=== PATIENT | female | born 1950 | race Caucasian/White ===

== ENCOUNTER 2023-01-19 13:11 | Emergency (ER) | payer MEDICARE, OTHER ==
[~2023-01-19] VITALS: Ht 162.6 cm; Wt 71.2 kg
[2023-01-19 13:35] VITALS: BP 153/77
--- NOTE | 2023-01-19 13:56 | Diagnostic Imaging Report ---
EXAMINATION: Chest 2 view HISTORY: Cough. COMPARISON: None available. FINDINGS: The lung volumes are normal. No focal consolidation is seen. No large pleural effusion or pneumothorax is seen. The cardiomediastinal silhouette is normal in size with prosthetic heart valve. There is calcified aortic atherosclerotic plaque. Sternotomy wires are noted. No acute osseous abnormality is seen. IMPRESSION: 1. No acute pleuroparenchymal process. Dictated by: Dictated on workstation # [id number]
--- NOTE | 2023-01-19 14:13 | ED EENT ---
History of Present Illness General Chief Complaint: Nasal Problems Stated Complaint: NASAL PROBLEM Nursing Triage Note: Patient states she has had nasal congestion and cough since January 04. She states she went to walk-in care on Sunday and received prescriptions for doxycycline and tessalon pearls. She states the doxycyline made her nauseous and she was unable to finish taking the prescription. She states she is concerned she may have pneumonia and she has had blood clots the size of a quarter from her right nare 4 times today. She states she used a nasal gel earlier and has not had any clots since that time. Source: patient History of Present Illness Date Seen by Provider: Jan 19, 2023 Time Seen by Provider: 13:30 Initial Comments 72-year-old female presenting with complaints of continued nasal congestion and cough since January 04. She was seen and evaluated at the urgent care on Sunday and was prescribed doxycycline and Tessalon Perles. She states that the doxycycline, like most antibiotics she has tried previously, made her very nauseated and she was having vomiting and dry heaves. She had stopped taking the medicine after 4 days. Because she still had a cough and was getting some occasional blood clots from her nose she was concerned that she might have pneumonia. She does have a prosthetic valve in her heart. 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 She states that she is allergic to amoxicillin as it also causes the nausea and vomiting. She previously was taking clindamycin from a dentist and it also made her sick. She denies having anaphylaxis type reaction with swelling or closing off of her throat. Severity: moderate Location: nose (Continued nasal drainage and congestion and intermittent small blood clots from her nose when she blows. Having drainage causing a cough.) Prearrival Treatment: over the counter meds Modifying Factors: Worse With Coughing Associated Symptoms: No change in hearing; cough; No drooling, No ear drainage, No facial pain/swelling, No fever; malaise, nasal congestion/drainage; No poor fluid intake, No poor solids intake; sinus infection, sore throat; No tooth pain; voice change (Hoarse) Allergies and Home Medications Allergies Coded Allergies: amoxicillin (Verified Allergy, Unknown, 01/19/23) Patient Home Medication List Home Medication List Reviewed: Yes Cephalexin (Cephalexin) 500 Mg Tablet, 500 MG PO BID Prescribed by: BETO DILLARD on 01/19/23 1447 Review of Systems Review of Systems Constitutional: No chills, No dizziness, No fever Eyes: Denies Blurred Vision, Denies Vision Changes Ears: No Symptoms Reported Nose: see HPI Mouth: no symptoms reported Throat: see HPI, hoarse Respiratory: see HPI, cough Cardiovascular: no symptoms reported Gastrointestinal: see HPI Musculoskeletal: no symptoms reported Skin: no symptoms reported Past Ucibkcc-Olgigv-Ifvttg Hx Patient Social History Tobacco Use?: No Substance use?: No Alcohol Use?: No Pt feels they are or have been: No Past Medical History Surgery/Hospitalization HX: Quadruple bypass, mechanical heart valve, TAVR, Lupus, chronic renal insufficiency- GFR 47 Physical Exam Vital Signs Vital Signs - First Documented 01/19/23 13:35 Temp 36.8 Pulse 70 Resp 18 B/P (MAP) 153/77 (102) Pulse Ox 98 O2 Delivery Room Air Height, Weight, BMI Height: '" Weight: lbs. oz. kg; 26.00 BMI Method: General Appearance: WD/WN, no apparent distress Eyes: bilateral eye PERRL, bilateral eye EOMI Ears: bilateral ear auricle normal, bilateral ear canal normal, bilateral ear TM normal Nose: No active bleeding, No dried blood; sinus tenderness (Mild maxillary sinus tenderness bilaterally) Mouth/Throat: normal mouth inspection, pharynx normal; No pharynx swelling, No tonsillar exudate Neck: supple Cardiovascular: normal peripheral pulses, regular rate, rhythm, other (Click from mechanical valve) Respiratory: chest non-tender, lungs clear, normal breath sounds, no respiratory distress, no accessory muscle use Neurologic/Psychiatric: alert, oriented x 3 Skin: normal color, warm/dry Progress/Results/Core Measures Results/Orders My Orders Orders - BETO DILLARD MD Chest Pa/Lat (2 View) (01/19/23 13:33) Vital Signs/I&O 01/19/23 13:35 Temp 36.8 Pulse 70 Resp 18 B/P (MAP) 153/77 (102) Pulse Ox 98 O2 Delivery Room Air Blood Pressure Mean: 102 Progress Progress Note #1: Progress Note Potential diagnosis of pneumonia, COVID, influenza, upper respiratory infection with cough congestion, sinusitis, seasonal allergies. Patient reports that she had a negative COVID and flu swab done when she had gone to urgent care on Sunday. We will obtain a two-view chest x-ray looking for signs of acute pulmonary infection or infiltrate. Progress Note #2: Progress Note On my personal review and interpretation of the two-view chest x-ray I did not appreciate any acute infiltrate or effusion. Discussed findings with patient and counseled that with her continued symptoms that she could have sinusitis and that would help explain the occasional blood from her nose. A course of antibiotics could help with this. She also may benefit from just more aggressive symptomatic care with adding in nasal saline spray in addition to the gel that she is using for hydration to her nose and the Flonase. She states she did buy some Mucinex [id number] but was unsure if it was plain Mucinex or if it had additives. Advised to use the plain Mucinex s mirian she does have cardiac history. This to be less likely to interact or cause complications with her medications or blood pressure. Also advised to use a nasal saline spray to help keep nasal passages and sinuses moist to limit bleeding. He has a humidifier or vaporizer at the bedside. Will prescribe cephalexin 500 mg p.o. twice daily x10 days to try and help from sinusitis s tandpoint. Advised to have patient take that with food. She could wait to see how she responded to increasing her symptomatic care versus just starting the antibiotic. We will send the prescription to [facility] so it is there and available when she feels like she needs it. Counseled on follow-up and return precautions. Advised if she was having worsening symptoms or still not im proving that she could be reevaluated. Otherwise once she gets back to [place] she could check with her regular providers there. Diagnostic Imaging Diagonstic Imaging: Xray Plain Films/CT/US/NM/MRI: chest Comments [facility]. [place], [place] NAME: LATANYA DEWEY [facility] REC#: [id number] PT STATUS: REG ER : 1950 PHYSICIAN: BETO DILLARD MD ADMIT DATE: 01/19/23/ER FS Signed Date of Exam:01/19/23 CHEST PA/LAT (2 VIEW) EXAMINATION: Chest 2 view HISTORY: Cough. COMPARISON: None available. FINDINGS: The lung volumes are normal. No focal consolidation is seen. No large pleural effusion or pneumothorax is seen. The cardiomediastinal silhouette is normal in size with prosthetic heart valve. There is calcified aortic atherosclerotic plaque. Sternotomy wires are noted. No acute osseous abnormality is seen. IMPRESSION: 1. No acute pleuroparenchymal process. Dictated by: Dictated on workstation # [id number] Dict: 01/19/23 1354 Trans: 01/19/23 1415 AS6 [id number] Interpreted by: SIGIFREDO LONG DO Electronically signed by: SIGIFREDO LONG DO 01/19/23 1415 Reviewed: Reviewed by Me (I reviewed the radiologist report at 1432) Departure Impression Primary Impression: Sinusitis Qualified Codes: J01.90 - Acute sinusitis, unspecified Additional Impression: Upper respiratory infection with cough and congestion Disposition: HOME, SELF-CARE Condition: Stable Departure-Patient Inst. Decision time for Depature: 14:45 Referrals: NO,LOCAL PHYSICIAN (PCP) Primary Care Physician [facility] Patient Instructions: Upper Respiratory Infection ED, Sinusitis, Adult ED Add. Discharge Instructions: For symptomatic treatment you could continue with the Flonase that you are using and the nasal gel. For additional treatment you could add in using a nasal saline spray to help keep your sinuses and nasal passages moist. Taking plain Mucinex or guaifenesin could help to thin out secretions and mucus. The plain Mucinex or guaifenesin would not interact or interfere with your heart and cardiac medications. Use a bedside humidifier or vaporizer to help keep your nasal passages and sinuses moist while you are sleeping. Try to drink plenty of water and stay really well-hydrated. If you are having worsening symptoms or things are not improving with symptomatic treatment start taking the cephalexin antibiotic to see if she might tolerate it better than the previous antibiotics. Make sure to take it with food. If having continued symptoms or problems you could see about establishing care with the [facility] for local follow-up until you are able to return to [place] All discharge instructions reviewed with patient and/or family. Voiced understanding. Scripts Cephalexin (Cephalexin) 500 Mg Tablet 500 MG PO BID for sinusitis for 10 Days, #20 TAB 0 Refills Prov: BETO DILLARD MD 01/19/23 BETO DILLARD MD Jan 19, 2023 14:13
[2023-01-19] MEDS ORDERED: CEPH500T PO (14:47)
== END 2023-01-19 14:53 | disposition home or self-care (01) ==
LOC: ER FS 13:12
DX: J32.0 Chronic maxillary sinusitis (principal); J06.9 Acute upper respiratory infection, unspecified; Z88.0 Allergy status to penicillin
CPT/HCPCS: 71046

== ENCOUNTER 2023-06-09 11:27 | Emergency (ER) | payer MEDICARE, OTHER ==
[~2023-06-09] VITALS: Ht 162.6 cm; Wt 72.6 kg
[~2023-06-09 11:27] MED LIST: CEPH500T PO
--- NOTE | 2023-06-09 11:42 | ED Fall/Injury ---
General Chief Complaint: Trauma-Non Activation Stated Complaint: FALL; LT KNEE/COCCYX INJ Source: patient Exam Limitations: no limitations History of Present Illness Date Seen by Provider: Jun 09, 2023 Time Seen by Provider: 11:28 Initial Comments 72-year-old female with past medical history of mechanical heart valve on warfarin as well as lupus coming in after a mechanical fall going down steps when her left knee gave out. Landed on her sacrum mostly having sacral pain as well as left knee and ankle pain. Did not hit her head or pass out. Has no neck or back pain otherwise. Has been ambulatory since then. Has not had anything for the pain. This occurred last night. Otherwise denying any other acute complaints. Is not having any bowel or bladder issues. Allergies and Home Medications Allergies Coded Allergies: amoxicillin (Verified Allergy, Unknown, 01/19/23) Patient Home Medication List Home Medication List Reviewed: Yes Cephalexin (Cephalexin) 500 Mg Tablet, 500 MG PO BID Prescribed by: BETO DILLARD on 01/19/23 2988 Review of Systems Review of Systems Constitutional: No fever Eyes: No Symptoms Reported Ears, Nose, Mouth, Throat: no symptoms reported Respiratory: no symptoms reported Cardiovascular: no symptoms reported Gastrointestinal: no symptoms reported Genitourinary: no symptoms reported Musculoskeletal: see HPI Skin: no symptoms reported Psychiatric/Neurological: No Symptoms Reported All Other Systems Reviewed Negative Unless Noted: Yes Past Qqjxxmz-Vmnqtz-Hqgfwb Hx Patient Social History Substance use?: No Past Medical History Surgery/Hospitalization HX: Quadruple bypass, mechanical heart valve, TAVR, Lupus, chronic renal insufficiency- GFR 47 Physical Exam Vital Signs Vital Signs - First Documented 06/09/23 11:34 Temp 37.0 Pulse 58 Resp 18 B/P (MAP) 158/73 (101) Pulse Ox 97 O2 Delivery Room Air Capillary Refill : Height, Weight, BMI Height: '" Weight: lbs. oz. kg; 26.00 BMI Method: General Appearance: WD/WN, no apparent distress HEENT: PERRL/EOMI, normal ENT inspection, pharynx normal Neck: non-tender, full range of motion, supple, normal inspection Cardiovascular: regular rate, rhythm Respiratory: chest non-tender, lungs clear, normal breath sounds, no respiratory distress, no accessory muscle use Gastrointestinal: normal bowel sounds, non tender, soft Extremities: normal range of motion, no pedal edema, no calf tenderness, normal capillary refill, other (Left knee with trace effusion and tenderness over the medial and lateral joint wall, sacral tenderness, no spinal tenderness, pain over left ATFL) Neurologic/Psychiatric: no motor/sensory deficits, alert, normal mood/affect, oriented x 3 Skin: normal color, warm/dry Thornton Coma Score Best Eye Response: (4) Open Spontaneously Best Verbal Response: (5) Oriented Best Motor Response: (6) Obeys Commands Progress/Results/Core Measures Results/Orders My Orders Orders - DAVID STARR MD Ct Head Wo (06/09/23 11:37) Knee 3 View Left (06/09/23 11:37) Ct Pelvis Wo (06/09/23 11:37) Hydrocodone/Apap 5/325 Tablet (Hydrocod (06/09/23 11:45) Ankle 3 View Left (06/09/23 12:00) Medications Given in ED Current Medications Medications Dose Ordered Sig/Josias Route Start Time Stop Time Status Last Admin Dose Admin Acetaminophen/ Hydrocodone Bitart 1 ea ONCE ONCE PO 06/09/23 11:45 06/09/23 11:46 DC 06/09/23 11:44 1 EA Vital Signs/I&O 06/09/23 06/09/23 11:34 11:34 Temp 37.0 37.0 Pulse 58 58 Resp 18 18 B/P (MAP) 158/73 (101) 158/73 (101) Pulse Ox 97 O2 Delivery Room Air Room Air Progress Progress Note : Progress Note 72-year-old female with above history coming in due to left knee and sacral pain after mechanical fall yesterday. ABCs were intact, vital stable, GCS 15 on presentation. Some mild tenderness on her left knee, but is able to ambulate and has full range of motion of it with good strength as well. She is tender over her sacrum mostly over her coccyx as well. CT pelvis and x-ray of the left knee and ankle ordered. We will do a CT of the head as well, she did not hit her head, but her INR goal is 2-1/2-3-1/2 and that jarring motion could still cause a bleed although unlikely. CT head and pelvis on my interpretation with no significant bleeding or fracture. X-ray of the knee and ankle ordered and interpreted by me showing also no fracture or dislocation. She was given hydrocodone for pain control. She is tolerating ambulation so I think an occult fracture is very unlikely. I believe she is stable for discharge with outpatient follow-up. She was sent home with strict return precautions. Diagnostic Imaging Diagonstic Imaging: Xray (left knee), CT (head and pelvis) Comments [facility] [place] [place] NAME: LATANYA DEWEY [facility] REC#: [id number] PT STATUS: REG ER : 1950 PHYSICIAN: DAVID STARR MD ADMIT DATE: 06/09/23/ER FS Draft Date of Exam:06/09/23 CT HEAD WO PROCEDURE: CT head without contrast. TECHNIQUE: Multiple contiguous axial images were obtained through the brain without the use of intravenous contrast. Auto Exposure Controls were utilized during the CT exam to meet ALARA standards for radiation dose reduction. INDICATION: Fall while anticoagulated. FINDINGS: The ventricles and sulci are within normal limits. There is no hydrocephalus or cerebral edema. There is no midline shift or mass effect. There is no intracranial mass, hemorrhage, or extra-axial fluid collection. The visualized paranasal sinuses and mastoid air cells are clear. There are no regional areas of decreased attenuation appreciated to suggest an acute CVA. IMPRESSION: No acute intracranial abnormality. Dictated on workstation # [id number] Dict: 06/09/23 1213 Trans: 06/09/23 1221 [id number] Interpreted by: VIRGINIA PANCHAL MD Electronically signed by: [facility] [place] NAME: LATANYA DEWEY [facility] REC#: [id number] PT STATUS: REG ER : 1950 PHYSICIAN: DAVID STARR MD ADMIT DATE: 06/09/23/ER FS Draft Date of Exam:06/09/23 CT PELVIS WO PROCEDURE: CT pelvis without contrast. TECHNIQUE: Multiple contiguous axial images were obtained through the pelvis without the use of intravenous contrast. Sagittal and coronal reformations were performed. Auto Exposure Controls were utilized during the CT exam to meet ALARA standards for radiation dose reduction. INDICATION: Pain after fall. FINDINGS: There is lower lumbar hypertrophic degenerative facet disease. The sacrum is intact. The SI joints are unremarkable. The bony pelvis is intact. The obturator rings are intact. The proximal hips are intact. Bladder is normal. There are calcified fibroids in the uterus. There is some diverticular disease. IMPRESSION: Lower lumbar hypertrophic degenerative facet disease; however, no acute fracture or dislocation in the pelvis, sacrum, or proximal femurs. Diverticular disease without evidence of diverticulitis. Calcified fibroids in the uterus. Dictated on workstation # [id number] Dict: 06/09/23 1214 Trans: 06/09/23 1225 [id number] Interpreted by: VIRGINIA PANCHAL MD Electronically signed by: [facility] [place] NAME: ZULEIMALATANYA [facility] REC#: [id number] PT STATUS: REG ER : 1950 PHYSICIAN: DAVID STARR MD ADMIT DATE: 06/09/23/ER FS Signed Date of Exam:06/09/23 KNEE 3 VIEW LEFT INDICATION: Left knee pain post fall. AP, oblique, and lateral views of the left knee are obtained. FINDINGS: No fracture or acute bony abnormality is seen. There is a small left knee joint effusion. There is moderate patellofemoral spurring. There is moderate medial and lateral joint space osteophyte formation. 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 No acute fracture. A small joint effusion is present. Dictated by: Dictated on workstation # [id number] Dict: 06/09/23 1218 Trans: 06/09/23 1228 [id number] Interpreted by: ADAN LORENZO MD Electronically signed by: ADAN LORENZO MD 06/09/238 [facility] [place] NAME: LATANYA DEWEY [facility] REC#: [id number] PT STATUS: REG ER : 1950 PHYSICIAN: DAVID STARR MD ADMIT DATE: 06/09/23/ER FS Draft Date of Exam:06/09/23 ANKLE 3 VIEW LEFT INDICATION: Lateral ankle pain. FINDINGS: The alignment is normal. The plafond's and talar dome are intact. Ankle mortise is symmetric. There is no fracture or dislocation. There are some vascular calcifications. There is some soft tissue swelling laterally. IMPRESSION: No acute fracture or dislocation. Soft tissue swelling laterally. Dictated on workstation # [id number] Dict: 06/09/23 1216 Trans: 06/09/23 1222 [facility] [id number] Interpreted by: VIRGINIA PANCHAL MD Electronically signed by: Departure Impression Primary Impression: Knee contusion Qualified Codes: S80.02XA - Contusion of left knee, initial encounter Additional Impressions: Ankle sprain Qualified Codes: S93.492A - Sprain of other ligament of left ankle, initial encounter Coccyx contusion Qualified Codes: S30.0XXA - Contusion of lower back and pelvis, initial encounter Disposition: 01 HOME, SELF-CARE Condition: Stable Departure-Patient Inst. Decision time for Depature: 12:50 Referrals: NO,LOCAL PHYSICIAN (PCP/Family) Primary Care Physician Patient Instructions: Ankle Sprain ED, Coccyx Injury (DC) Add. Discharge Instructions: Fortunately nothing is broken in your lower back or tailbone, knee, or ankle. Most of these are just bone bruises. Your left ankle is sprained, however. Please follow-up with Danie Leiva here in [facility] in regards to these injuries. We recommend taking Tylenol extra strength every 6-8 hours to help with the pain. You can also ice the areas that hurt. When sitting, you can try to sit on a donut like pillow which will help with pain so that you are not putting pressure on your tailbone. You can find these at different stores or online. Scripts Hydrocodone/Acetaminophen (Hydrocodone-Acetamin 5-325 mg) 5 Mg-325 Mg Tablet 1 TAB PO Q6H PRN for PAIN-MODERATE (5-7) for 3 Days, #12 TAB Prov: DAVID STARR MD 06/09/23 DAVID STARR MD Jun 09, 2023 11:42
[2023-06-09] MEDS ORDERED: HYDROcodone/ACETAMINOPHEN 5 MG/325 MG TABLET PO ONE (11:45)
--- NOTE | 2023-06-09 12:21 | Diagnostic Imaging Report ---
PROCEDURE: CT head without contrast. TECHNIQUE: Multiple contiguous axial images were obtained through the brain without the use of intravenous contrast. Auto Exposure Controls were utilized during the CT exam to meet ALARA standards for radiation dose reduction. INDICATION: Fall while anticoagulated. FINDINGS: The ventricles and sulci are within normal limits. There is no hydrocephalus or cerebral edema. There is no midline shift or mass effect. There is no intracranial mass, hemorrhage, or extra-axial fluid collection. The visualized paranasal sinuses and mastoid air cells are clear. There are no regional areas of decreased attenuation appreciated to suggest an acute CVA. IMPRESSION: No acute intracranial abnormality. Dictated by: Dictated on workstation # [id number]
--- NOTE | 2023-06-09 12:22 | Diagnostic Imaging Report ---
INDICATION: Lateral ankle pain. FINDINGS: The alignment is normal. The plafond's and talar dome are intact. Ankle mortise is symmetric. There is no fracture or dislocation. There are some vascular calcifications. There is some soft tissue swelling laterally. IMPRESSION: No acute fracture or dislocation. Soft tissue swelling laterally. Dictated by: Dictated on workstation # [id number]
--- NOTE | 2023-06-09 12:26 | Diagnostic Imaging Report ---
PROCEDURE: CT pelvis without contrast. TECHNIQUE: Multiple contiguous axial images were obtained through the pelvis without the use of intravenous contrast. Sagittal and coronal reformations were performed. Auto Exposure Controls were utilized during the CT exam to meet ALARA standards for radiation dose reduction. INDICATION: Pain after fall. FINDINGS: There is lower lumbar hypertrophic degenerative facet disease. The sacrum is intact. The SI joints are unremarkable. The bony pelvis is intact. The obturator rings are intact. The proximal hips are intact. Bladder is normal. There are calcified fibroids in the uterus. There is some diverticular disease. IMPRESSION: Lower lumbar hypertrophic degenerative facet disease; however, no acute fracture or dislocation in the pelvis, sacrum, or proximal femurs. Diverticular disease without evidence of diverticulitis. Calcified fibroids in the uterus. Dictated by: Dictated on workstation # [id number]
--- NOTE | 2023-06-09 12:27 | Diagnostic Imaging Report ---
INDICATION: Left knee pain post fall. AP, oblique, and lateral views of the left knee are obtained. FINDINGS: No fracture or acute bony abnormality is seen. There is a small left knee joint effusion. There is moderate patellofemoral spurring. There is moderate medial and lateral joint space osteophyte formation. 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 No acute fracture. A small joint effusion is present. Dictated by: Dictated on workstation # [id number]
[2023-06-09] MEDS ORDERED: ACHD5005 PO (12:43)
[2023-06-09 12:45] VITALS: BP 138/86
== END 2023-06-09 12:47 | disposition home or self-care (01) ==
LOC: EDUNIT# 11:27 → ER FS 11:29
DX: S93.402A Sprain of unspecified ligament of left ankle, initial encounter (principal); S80.02XA Contusion of left knee, initial encounter; S30.0XXA Contusion of lower back and pelvis, initial encounter; Z79.01 Long term (current) use of anticoagulants; Z95.2 Presence of prosthetic heart valve; Z28.310 Unvaccinated for COVID-19; W10.9XXA Fall (on) (from) unspecified stairs and steps, initial encounter
CPT/HCPCS: 70450; 72192; 73562; 73610